=== PATIENT | male | born 1980 ===

== ENCOUNTER 2024-11-20 04:29 | Emergency (ER) | payer OTHER, SELFPAY ==
--- NOTE | 2024-11-20 | ECG_ITS ---
Test Reason : WEAKNESS Blood Pressure : */* mmHG Vent. Rate : 92 BPM Atrial Rate : 92 BPM P-R Int : 148 ms QRS Dur : 84 ms QT Int : 348 ms P-R-T Axes : 72 62 32 degrees QTcB Int : 430 ms Normal sinus rhythm Normal ECG No previous ECGs available Referred By: Generic ED Physician Electronically Signed By: JULIANA MIRZA MD
[2024-11-20 04:39] VITALS: BP 143/94; BP 172/101; PULSE 106; PULSE 98; RESP 20; TEMP 37; O2SAT 100; BMI 33.1
[2024-11-20 05:00] LABS: Basophils Percent Auto 0.5 % (0-2); Eosinophils Absolute Auto 0.1 X10*3/uL (0.0-0.4); Eosinophils Percent Auto 1.5 % (0-4); Hematocrit 44.8 % (42.0-52.0); Hemoglobin 15.7 g/dl (14.0-18.0); Imm Gran Abs Auto 0.03 X10*3/uL (0.00-0.03); Imm Gran Pct Auto 0.3 % (0.0-0.4); Lymphocytes Absolute Auto 3.7 X10*3/uL (1.2-4.9); Lymphocytes Percent Auto 41.9 % (20-40); MANUAL DIFF FLAG NO; Mean Corpuscular Hemoglobin 31.2 pg (27.0-33.0); Mean Corpuscular Volume 88.9 fL (80.0-98.0); Monocytes Absolute Auto 0.7 X10*3/uL (0.1-1.2); Monocytes Percent Auto 7.6 % (2-11); Neutrophils Absolute Auto 4.2 x10*3/uL (2.0-8.3); Neutrophils Percent Auto 48.2 % (45-73); Platelet Count 176 X10*3/uL (160-400); Red Blood Count 5.04 X10*6/uL (4.60-5.80); Red Cell Distribution Width 13.2 % (11.0-16.0); White Blood Count 8.7 X10*3/uL (4.8-10.8)
[2024-11-20 05:23] LABS: Alanine Aminotransferase 83 U/L (0-40); Albumin Level 4.3 g/dL (3.5-5.0); Alkaline Phosphatase 78 U/L (39-117); Anion Gap 13 (12-20); Aspartate Amino Transferase 36 U/L (5-37); Bilirubin Total 0.4 mg/dL (0.0-1.0); Blood Urea Nitrogen 14 mg/dL (9-16); Carbon Dioxide 25 mmol/L (22-29); Chloride 106 mmol/L (96-108); Creatinine Clr Calc Pharmacy 116.9; Estimated Glomerular Filt Rate > 60; Glucose Random 105 mg/dL (60-115); Potassium 3.4 mmol/L (3.3-5.1); Sodium 141 mmol/L (135-145)
[2024-11-20 05:33] LABS: Troponin-I High Sensitivity < 2.7 ng/L (<3.5-35.0)
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
[2024-11-20 06:07] LABS: Amphetamine Screen Urine Not Detected (Not Detect); Barbiturates, Urine Not Detected (Not Detect); Benzodiazepines Screen Urine Not Detected (Not Detect); Buprenorphine Scr Not Detected (Not Detect); Cannabinoid Screen Urine Not Detected (Not Detect); Cocaine Screen Urine Not Detected (Not Detect); Fentanyl, urine Not Detected (Not Detect); Methadone Screen, Urine Not Detected (Not Detect); Opiate Screen Urine Not Detected (Not Detect); Oxycodone Screen Urine Not Detected (Not Detect); Phencyclidine Screen Urine Not Detected (Not Detect)
[2024-11-20 06:31] VITALS: BP 140/92; PULSE 81; RESP 18; TEMP 37; O2SAT 99
--- NOTE | 2024-11-20 06:31 | PC.NURSE ---
reviewed discharge instructions with pt. pt verbalized understanding, lab results reviewed
[2024-11-20 06:40] VITALS: BP 140/92; PULSE 81; RESP 18; TEMP 37; O2SAT 99
== END 2024-11-20 06:41 | disposition left against medical advice (07) ==
PROVIDERS: Emergency Provider Emergency Medicine
DX: R53.1 Weakness (principal); R42 Dizziness and giddiness; F41.9 Anxiety disorder, unspecified
CPT/HCPCS: 36415; 80053; 80307; 84484; 85025; 93005; 99283; 99285

== ENCOUNTER → 2024-11-20 04:45 | Outpatient (BNV) | payer OTHER, SELFPAY | PROVIDERS: Emergency Provider Emergency Medicine; Visit Provider Internal Medicine Cardiovascular Disease | DX: R53.1 Weakness (principal) | CPT/HCPCS: 93010 ==